=== PATIENT | male | born 1970 | race Caucasian/White ===

== ENCOUNTER → 2021-08-11 08:52 | Outpatient (BNVA) | payer OTHER, SELFPAY | PROVIDERS: PCP Nurse Practitioner Family; Visit Provider Family Medicine | DX: E03.9 Hypothyroidism, unspecified (principal); R10.9 Unspecified abdominal pain; E34.9 Endocrine disorder, unspecified; R53.83 Other fatigue; E55.9 Vitamin D deficiency, unspecified; Z79.899 Other long term (current) drug therapy | CPT/HCPCS: 80053; 80061; 80307; 82306; 83036; 84270; 84402; 84403; 84443; 85025; G0103 ==

== ENCOUNTER → 2022-01-26 10:15 | Outpatient (BNVA) | payer OTHER, SELFPAY | PROVIDERS: PCP Nurse Practitioner Family; Visit Provider Nurse Practitioner Family | DX: E03.9 Hypothyroidism, unspecified (principal) | CPT/HCPCS: 84443 ==

== ENCOUNTER → 2022-04-21 16:00 | Outpatient (BNVA) | payer OTHER, SELFPAY | PROVIDERS: PCP Nurse Practitioner Family; Visit Provider Nurse Practitioner | DX: S62.336A Displaced fracture of neck of fifth metacarpal bone, right hand, initial encounter for closed fracture (principal); X58.XXXA Exposure to other specified factors, initial encounter | CPT/HCPCS: 73130 ==

== ENCOUNTER 2022-04-28 10:25 | Day surgery (SDC) | payer OTHER, SELFPAY ==
--- NOTE | 2022-04-27 17:10 | SUR.PREOP ---
[id number] Call received from of pt and stated that a call was not received for time of arrival of sx tomorrow, i stated that he(the pt) was on the schedule for today and we called multiple times yesterday and phone recording stated that the wireless customer is unavailable and to try back later,informed to call Dr. Nice's office tomorrow after 8am and speak with his nurse regarding rescheduling for sx and also inform the office that the phone number is incorrect and to correct this so we can get in touch with pt and , she verbalized understanding for all information given to her
[2022-04-28] VITALS (17 sets, daily range): BP systolic 105–148; BP diastolic 70–93; PULSE 47–83; RESP 11–18; TEMP 36.1–36.8; O2SAT 97–100; BMI 25.8
--- NOTE | 2022-04-28 | XR_ITS ---
WS: [id number] XR hand RT min 3V* [id number] REASON FOR EXAM: Right fifth metacarpal neck fracture, displaced/angulated FINDINGS: Reduction of angulated fracture of distal fifth metacarpal with longitudinal screw placement. Surgical appliance in proper position and alignment. Fracture fragments in good alignment. XR/XR hand RT min 3V* [id number] IMPRESSION: Fixation of fifth metacarpal fracture as above.
--- NOTE | 2022-04-28 10:44 | W.PM.OPSUD ---
Surgery/Procedure H&P Update DATE OF PROCEDURE: April 28, 2022 DATE H&P PERFORMED: 04/22/22 CHANGES TO PREVIOUS DOCUMENTATION: None PREOP DIAGNOSIS: Right fifth metacarpal neck fracture, displaced/angulated PRIMARY INDICATION FOR PROCEDURE: Displaced right fifth metacarpal neck fracture Plan will be for fixation to allow earlier range of motion and early return to activity. PLANNED PROCEDURE: Operation Date: 04/28/22 12:15 Proposed Procedures p right fifth metacarpal open reduction internal fixation:91595, S62.306A(Right) - Mike Nice DO
[2022-04-28] MEDS: sodium chloride 0.9% 1,000 ML 30 ML IV (10:49)
[2022-04-28] MEDS: ketorolac 30 mg/mL INJ IVP (10:49)
[2022-04-28] MEDS: acetaminophen 1,000 MG/100 ML PIGGYBACK 400 MG IV (10:50)
--- NOTE | 2022-04-28 10:52 | ANES.PREANE2 ---
Pre-Anesthetic Assessment Height/Weight: Height 1.85 m Weight 88.904 kg Temp Pulse Resp BP Pulse Ox O2 Del Method 98.2 F 56 L 18 147/93 99 04/28/22 10:36 04/28/22 10:36 04/28/22 10:36 04/28/22 10:36 04/28/22 10:36 04/28/22 10:37 Preop Diagnosis: Right fifth metacarpal neck fracture, displaced/angulated Operation Date: 04/28/22 12:15 Proposed Procedures p right fifth metacarpal open reduction internal fixation:00307, S62.306A(Right) - Mike Nice, Familial anesthetic complications: sore throat after Was Beta Melissa taken within 24 hours: N/A Was Clonidine taken within 24 hours: N/A Last intake: Intake Last Liquid Date 04/28/22 Last Liquid Time 01:00 Last Solid Date 04/27/22 Last Solid Time 18:00 Social No alcohol and No tobacco former smoker Exam alert, oriented x 3, clear to auscultation bilaterally and regular rate & rhythm Airway Mallampati: Class II Dentition: full Anesthetic Plan ASA status: 2 Anesthesia: General Risk of > 500 ml blood loss (7ml/kg in children): No Medications/Allergies Home Medications Medication Instructions Recorded Confirmed Last Taken Type levothyroxine 137 mcg tablet 137 mcg PO DAILY 04/26/22 04/28/22 04/27/22 History Allergies Allergy/AdvReac Type Severity Reaction Status Date / Time No Known Allergies Allergy Verified 04/22/22 10:43 Current Medications Generic Name Dose Route Start Last Admin Trade Name Freq PRN Reason Stop Dose Admin Sodium Chloride 1,000 mls @ 30 mls/hr 04/28/22 10:30 04/28/22 10:49 Sodium Chloride 0.9% IV 30 mls/hr .Q24H JAX Administration PFSH Anesthesia Medical History Fatigue Hypothyroid Medication management Vitamin D deficiency Social History Smoking and tobacco status: current every day smoker Data Anesthesia Cardiac Studies: No Data to Display
[2022-04-28] MEDS: ceFAZolin 2,000 MG in sodium chloride 0.9% (plus) 50 ML 100 MG IV (11:01)
[2022-04-28] MEDS: lidocaine 2% INJ 20 mL INJECTION (11:36)
--- NOTE | 2022-04-28 11:46 | PM.PACU ---
PACU note Narrative: Patient taken the PACU in stable condition. Recovering well. Dressing on in place clean dry and intact. He is able to wiggle fingers. Decreased sensation to the right small finger after local anesthetic. Splint on in place clean dry and intact. Fingertips warm well perfused. Brisk capillary refill less than 2 seconds. Exam: awake Disposition: discharged
--- NOTE | 2022-04-28 11:47 | P.OP_ITS ---
Brief Operative Note Date of procedure: 04/28/22 Pre-op diagnosis: Right fifth metacarpal neck fracture displaced volar angulat ion Post-op diagnosis: same Procedure Done: Right fifth metacarpal neck fracture open reduction internal fixation with intramedullary headless compression screw Surgeon: Mike Nice Estimated blood loss (mL): 1 Complications: None Post-op Plan: Patient taken to PACU in stable condition. Recovering well. Will receive appropriate discharge instruction as well as pain medication postoperatively. Placed in a splint. Should be nonweightbearing to the right hand at this point in time. Understands importance of compliance with this. We will follow-up with me in the office in 2 weeks. Patient understands and agrees with current plan. All questions answered. Understands and contact the office for any questions or concerns. Condition: stable Disposition: same day Coding Level of Care Code Acute Code for Petty Horvath
--- NOTE | 2022-04-28 11:47 | PM.OP ---
Operative Report Date of procedure: April 28, 2022 Pre-op diagnosis: Preop Diagnosis Right fifth metacarpal neck fracture, displaced/ angulated Post-op diagnosis: Same Procedure done: Right fifth metacarpal neck fracture open reduction internal fixation with intramedullary headless compression screw Implants: Arthrex 3.5 mm fully threaded headless compression screw x 42mm Surgeon: Mike Nice DO Estimated blood loss: 1 mL No tourniquet was used IV fluids: 550 mL Complications: None Condition: stable Disposition: same day Brief History: Patient's been seen and worked up in the outpatient setting found to have a right fifth metacarpal neck fracture. He is active right hand and utilizes right hand daily. He has a noticeable deformity with on x-ray with significant volar angulation greater than 65 degrees. He has decreased range of motion. I cannot appreciate any malrotation. We did talk about his treatment options as far as nonoperative and operative intervention. We talked about the risks benefits complication alternatives to surgical and nonsurgical treatment options. Ultimately benefits for him with surgery would be christian of anatomic alignment of his fifth metacarpal neck fracture given his significant volar angulation outside of acceptable criteria as well as ultimately hopes for earlier range of motion and weightbearing compared to nonoperative cast treatment. Ultimately through shared decision making understanding his risks with surgery he elects to proceed with surgical intervention. All questions have been answered at this time. We will proceed with right fifth metacarpal neck fracture open reduction internal fixation with intramedullary screw fixation. All questions answered. Procedure: Patient was seen eval in the preoperative holding area. Consent was reviewed and signed with patient. Correct extremity marked. Seen evaluated by anesthesia once cleared for surgery he was then subsequently taken back to the operative suite. Transported onto the OR table in supine position all bony prominences well-padded patient was appropriately secured to the bed. Patient's right arm was then placed to an armboard. Nonsterile tourniquet applied to the right upper arm. Once appropriately anesthetized the right upper extremity was then prepped and draped in standard orthopedic fashion. Final timeout performed. Patient received appropriate preoperative antibiotics. No tourniquet was insufflated during this procedure. This point time I brought in a sterilely prepped and draped mini C arm to evaluate patient's fracture. Again persistent significant volar angulation was appreciated on examination I then performed a standard [facility] manipulation of the fifth metacarpal neck fracture to obtain reduction. This was then confirmed to be in acceptable alignment after manual manipulation on mini C arm and multiple orthogonal images. Once I was satisfied with this placement I then loaded Arthrex is guidepin and percutaneously placed this in center position on the metacarpal head and advanced this across the fracture site. I then took multiple orthogonal images to confirm appropriate placement. I loaded the second guide pin to make a small adjustment as my initial wire was slightly to dorsal. The second wire was in center position on the AP and then on the dorsal third of the head in appropriate position on the metacarpal shaft. Preoperatively his canal was measured to accommodate for 3.5 mm intramedullary screw. Once satisfied with my guidepin placement I then advanced this into the base of the fifth metacarpal so my wire would not move while placing the cannulated drill bit. I then subsequently made a small stab incision longitudinally directly over the guidepin and then placed my cannulated drill bit over the guidewire and an oscillating fashion breaking the cortex and then drilling out the distal aspect of the fracture site to the canal in preparation for fully threaded headless compression screw. Next I then selected a 3.5 mm x 42 mm screw placed this on a hemostat and took an x-ray of this held over the fracture this looked and appeared to be in appropriate length as this would capture distal to the this medicine would have appropriate length above and below the fracture site. With once again of 3.5 mm appear to be appropriate. I then subsequently loaded a 32.5 mm x 42 mm screw slid this over the guidepin and then by hand while maintaining again my reduction as well as rotation to prevent any malrotation while advancing the screw advance the screw to appropriate depth below the articular margin and subchondral bone. This had excellent purchase fixation as well as compression across my fracture site and maintained my reduction. I then once satisfied with appropriate advancement of the intramedullary screw remove the guidepin atraumatically. I then took the fingers through range of motion and cascade there is no malrotation appreciated. Final x-rays were taken in multiple orthogonal images AP oblique and lateral which showed reduction of the fifth metacarpal neck fracture and appropriate placement and screw in appropriate placement and not intra-articular. The site was then thoroughly irrigated. I then injected local anesthetic for postoperative pain control. Incision was then closed with a simple interrupted nylon stitch Xeroform 4 x 4's Kerlix and an ulnar gutter accommodating for motion of the MP was then applied patient was then awakened from anesthesia and taken to PACU in stable condition. Patient tolerated procedure without complications. Disposition: Patient taken PACU in stable condition recovering well. Splint on in place clean dry and intact. We will see appropriate discharge instructions as well as pain medication postoperatively we will follow-up with me in the office in 2 weeks. Patient understands if any questions or concerns and contact the office. All questions answered.
[2022-04-28] MEDS: meperidine 50 mg/mL INJ 12.5 MG IVP (12:28)
[2022-04-28] MEDS: HYDROcodone-acetaminophen 5-325 mg Tablet 1 TAB PO (13:45)
--- NOTE | 2022-04-28 13:46 | ANE.PACU2 ---
Inpatient post-anesthesia follow up: Airway intact: Yes Vital signs: Temperature 97.3 F Pulse Rate 50 Respiratory Rate 17 Blood Pressure 133/88 Pulse Oximetry 99 Oxygen Delivery Me thod Room Air Oxygen Flow Rate 8 Fraction of Inspir ed Oxygen Hydration adequate: Yes Nausea and vomiting: No Pain level: 1 Mental status: Baseline
== END 2022-04-28 14:22 | disposition home or self-care (01) ==
PROVIDERS: PCP Nurse Practitioner Family; Visit Provider Student in an Organized Health Care Education/Training Program
PROC: (CPT 26615; principal; 2022-04-28 11:55)
DX: S62.336A Displaced fracture of neck of fifth metacarpal bone, right hand, initial encounter for closed fracture (principal); X58.XXXA Exposure to other specified factors, initial encounter; F17.210 Nicotine dependence, cigarettes, uncomplicated; E03.9 Hypothyroidism, unspecified
CPT/HCPCS: 26615; 73130; 76000; A4216; C1713; J0131; J0690; J1100; J1885; J2175; J2250; J2405; J3010; J3490; J7030

== ENCOUNTER 2022-05-21 | Outpatient (CLI) | payer OTHER, SELFPAY | END 2022-05-21 23:00 | disposition home or self-care (01) | LOC: SOT 07-26 15:02 | PROVIDERS: PCP Nurse Practitioner Family; Visit Provider Student in an Organized Health Care Education/Training Program | DX: Z46.89 Encounter for fitting and adjustment of other specified devices (principal); S62.306S Unspecified fracture of fifth metacarpal bone, right hand, sequela; X58.XXXS Exposure to other specified factors, sequela | CPT/HCPCS: L3908 ==

== ENCOUNTER → 2022-05-21 13:09 | Outpatient (BNVA) | payer OTHER, SELFPAY | PROVIDERS: PCP Nurse Practitioner Family; Visit Provider Student in an Organized Health Care Education/Training Program | DX: Z47.89 Encounter for other orthopedic aftercare (principal); S62.366A Nondisplaced fracture of neck of fifth metacarpal bone, right hand, initial encounter for closed fracture; X58.XXXA Exposure to other specified factors, initial encounter | CPT/HCPCS: 73130 ==

== ENCOUNTER → 2023-04-06 14:21 | Outpatient (BNVA) | payer OTHER, SELFPAY | PROVIDERS: PCP Nurse Practitioner Family; Visit Provider Nurse Practitioner Family | DX: E03.9 Hypothyroidism, unspecified (principal); R10.9 Unspecified abdominal pain; Z79.899 Other long term (current) drug therapy; Z13.6 Encounter for screening for cardiovascular disorders | CPT/HCPCS: 71046; 74018; 80053; 80061; 81003; 83036; 83516; 83550; 84443; 85025; G0103 ==

== ENCOUNTER 2023-11-16 20:00 | Outpatient (CLI) | payer OTHER, SELFPAY | END 2023-11-16 20:01 | disposition home or self-care (01) | LOC: SLEEP 22:22 | PROVIDERS: PCP Nurse Practitioner Family; Visit Provider Nurse Practitioner Family | DX: G47.33 Obstructive sleep apnea (adult) (pediatric) (principal) | CPT/HCPCS: 95810 ==

== ENCOUNTER → 2024-01-12 13:48 | Outpatient (BNVA) | payer OTHER, SELFPAY | PROVIDERS: PCP Nurse Practitioner Family; Visit Provider Nurse Practitioner Family | DX: E03.9 Hypothyroidism, unspecified (principal) | CPT/HCPCS: 84443 ==